=== PATIENT | male | born 1960 | race Two or more races ===

== ENCOUNTER 2021-06-30 21:11 | Emergency (ER) | payer SELFPAY ==
[~2021-06-30] VITALS: Ht 172.7 cm; Wt 113.0 kg
[2021-06-30 23:30] LABS: BASOPHILS % 0.4 % (0.0-2.0); EOSINOPHILS % 0.7 % (0.0-5.0); HEMOGLOBIN. 15.9 g/dL (14.0-18.0); LYMPHOCYTES % 12.5 % (20.0-50.0); MEAN CORPUSCULAR HEMOGLOBIN 27.3 pg (28.0-32.0); MEAN CORPUSCULAR VOLUME 80.4 fL (80.0-94.0); MEAN PLATELET VOLUME 7.9 fl (7.4-10.4); MONOCYTES % 7.7 % (2.0-8.0); NEUTROPHILS % 78.7 % (40.0-76.0); PLATELET 194 x1000/uL (130-400); RED BLOOD CELL COUNT 5.84 mill/uL (4.7-6.1); RED CELL DISTRIBUTION WIDTH 14.7 % (11.6-14.6)
[2021-06-30 23:40] LABS: CHLORIDE 106 mEq/L (98-107)
[2021-07-01 02:45] VITALS: BP 171/100
== END 2021-07-01 03:06 | disposition home or self-care (01) ==
LOC: ER 21:11
DX: I10 Essential (primary) hypertension (principal); R42 Dizziness and giddiness; R00.2 Palpitations; F41.9 Anxiety disorder, unspecified
CPT/HCPCS: 36415; 71045; 80048; 84484; 85025; 93005; 99285